=== PATIENT | male | born 1945 | race Caucasian/White ===

== ENCOUNTER 2020-06-25 14:52 | Outpatient (CLI) | payer MEDICARE, BC ==
--- NOTE | 2020-06-25 15:19 | RAD ---
EXAM: 3 views of the left small finger HISTORY: Laceration and nail damage to the end of the small finger COMPARISON: None FINDINGS: There is no evidence of acute fracture or dislocation. Moderate diffuse soft tissue swellin g is seen. Mild DIP degenerative changes are present in the small finger. Moderate degenerative changes are seen in the DIP and PIP joints of the ring finger. No radiopaque foreign body is seen. IMPRESSION: No evidence of acute osseous abnormality.
== END 2020-06-25 14:53 | disposition home or self-care (01) ==
LOC: BICRAD 14:52
PROVIDERS: ATTEND Family Medicine
DX: S61.217D Laceration without foreign body of left little finger without damage to nail, subsequent encounter (principal)